=== PATIENT | female | born 1960 | race Caucasian/White ===

== ENCOUNTER → 2018-01-30 | Emergency (ER) | payer OTHER ==
[~2018-01-30] VITALS: Ht 154.9 cm; Wt 71.7 kg
[~2018-01-30] MED LIST: DIOVAN HCT 1601 EAC1; NORVASC10 MG
== END | disposition home or self-care (01) ==
LOC: ER 07:42
DX: S60.032A Contusion of left middle finger without damage to nail, initial encounter (principal); W22.8XXA Striking against or struck by other objects, initial encounter; Y93.89 Activity, other specified; Y92.098 Other place in other non-institutional residence as the place of occurrence of the external cause; Y99.8 Other external cause status